=== PATIENT | male | born 1945 | race Caucasian/White ===

== ENCOUNTER 2023-11-05 14:57 | Emergency (ER) | payer MEDICARE, OTHER ==
[2023-11-05] MEDS ORDERED: Bacitracin 1 PK ONE (15:46)
== END 2023-11-05 16:29 | disposition home or self-care (01) ==
LOC: MADERS 14:57
DX: T22.212A Burn of second degree of left forearm, initial encounter (principal); T20.26XA Burn of second degree of forehead and cheek, initial encounter; T20.23XA Burn of second degree of chin, initial encounter; T20.27XA Burn of second degree of neck, initial encounter; T20.24XA Burn of second degree of nose (septum), initial encounter; T31.0 Burns involving less than 10% of body surface; F17.210 Nicotine dependence, cigarettes, uncomplicated; I10 Essential (primary) hypertension; X08.8XXA Exposure to other specified smoke, fire and flames, initial encounter
CPT/HCPCS: 99284